=== PATIENT | female | born 1950 | race Caucasian/White ===

== ENCOUNTER → 2018-06-22 | Outpatient (CLI) | payer OTHER ==
--- NOTE | 2018-06-22 13:59 | PCVCIMAG ---
APPROVED REPORT Study performed: 06/22/2018 12:33:45 EXAM: Comprehensive 2D, Doppler, and color-flow Echocardiogram Patient Location: Echo lab Room #: 2Status: routine BSA: 1.80 HR: 60 bpmBP: 158/100 mmHg Rhythm: NSR Other Information Study Quality: Good Risk Factors: Cardiac Risk Factors: HTN, Hyperlipidemia Indications Abnormal ECG Dyspnea Chest Pain 2D Dimensions LVEF(%): 88.81 (>50%) IVSd: 8.86 (7-11mm)LVOT Diam: 21.16 (18-24mm) LVDd: 39.98 mm PWd: 9.27 (7-11mm)Ascending Ao: 34.29 (22-36mm) LVDs: 16.55 (25-40mm) Left Atrium: 38.02 (27-40mm) Aortic Root: 24.37 mm LV Single Plane 4CH: 74.50 % LV Single Plane 2CH: 71.95 %Ag's LVEF: 73.22 % Biplane EF: 73.8 % Volumes Left Atrial Volume (Systole) Single Plane 4CH: 36.32 mLSingle Plane 2CH: 26.22 mL Biplane LA Volume: 34.00 mLLA ESV Index: 19.00 mL/m2 Aortic Valve AoV Peak Jose Angel.: 1.57 m/s AO Peak Gr.: 9.84 mmHgLVOT Max P.02 mmHg LVOT Max V: 1.12 m/s KITA Vmax: 2.51 cm2 Mitral Valve E/A Ratio: 0.9 MV Decel. Time: 205.93 ms MV E Max Jose Angel.: 0.96 m/s MV A Jose Angel.: 1.11 m/s IVRT: 114.19 ms TDI E/Lateral E': 19.20E/Medial E': 24.00 Medial E' Jose Angel.: 0.04 m/s Lateral E' Jose Angel.: 0.05 m/s Pulmonary Valve PV Peak Jose Angel.: 1.00 m/sPV Peak Gr.: 3.99 mmHg Pulmonary Vein P Vein S: 0.76 m/sP Vein A: 0.32 m/s P Vein D: 0.41 m/sP Vein A Dur.: 100.3 msec P Vein S/D Ratio: 1.85 Tricuspid Valve TV Vmax: 0.62 m/s Left Ventricle The left ventricle is normal size. There is normal LV segmental wall motion. Borderline concentric left ventricular hypertrophy. Left ventricular systolic function is normal. The left ventricular ejection fraction is within the normal range. LVEF is >70%. Borderline Grade I - abnormal relaxation pattern. Findings suggest the left atrial pressure is elevated. Right Ventricle The right ventricle is normal size. The right ventricular systolic function is normal. Atria The left atrium size is normal. The right atrium size is normal. Aortic Valve Aortic valve is trileaflet. The Aortic valve is mildly sclerotic. No aortic regurgitation is present. There is no aortic valvular stenosis. Mitral Valve The mitral valve is normal in structure. There is no mitral valve regurgitation noted. No evidence of mitral valve stenosis. Tricuspid Valve The tricuspid valve is normal in structure. There is no tricuspid valve regurgitation noted. Pulmonic Valve The pulmonary valve is normal in structure. Trace pulmonic regurgitation. Great Vessels The aortic root is normal in size. The ascending aorta is normal in size. Aortic arch is not well visualized. IVC is normal in size and collapses with >50% inspiration Pericardium There is no pericardial effusion. There is no pleural effusion. <Conclusion> The left ventricle is normal size. Borderline concentric left ventricular hypertrophy. LVEF is >70%. Borderline Grade I - abnormal relaxation pattern. Findings suggest the left atrial pressure is elevated. The right ventricle is normal size. The left atrium size is normal. Aortic valve is trileaflet. The Aortic valve is mildly sclerotic. There is no aortic valvular stenosis. There is no mitral valve regurgitation noted. There is no tricuspid valve regurgitation noted. The aortic root is normal in size. There is no pericardial effusion.
== END | disposition home or self-care (01) ==
LOC: PCVCIMAG 13:43
PROVIDERS: ATTEND Internal Medicine Cardiovascular Disease
DX: I51.7 Cardiomegaly (principal); R06.02 Shortness of breath; R94.31 Abnormal electrocardiogram [ECG] [EKG]
CPT/HCPCS: 93306